=== PATIENT | female | born 1985 | race Two or more races ===

== ENCOUNTER 2017-02-12 12:03 | Emergency (ER) | payer MEDICAID ==
[~2017-02-12] VITALS: Ht 152.4 cm; Wt 69.0 kg
[2017-02-12 12:07] VITALS: BP 120/78
[2017-02-12 12:59] LABS: HEMATOCRIT 42.9 % (34.6-47.8); HEMOGLOBIN 14.5 g/dL (11.7-16.4); WHITE BLOOD COUNT 12.1 x10^3/uL (3.4-10)
[2017-02-12] MEDS ORDERED: CLINDAMYCIN 150 MG CAPSULE PO ONE (13:00)
[2017-02-12] MEDS ORDERED: LIDOCAINE 1%, 20ML INFIL ONE (13:00)
[2017-02-12] MEDS ORDERED: CLINDAMYCIN 150 MG CAPSULE ONE (13:01)
[2017-02-12] MEDS ORDERED: LIDOCAINE 1%, 20ML ONE (13:01)
[2017-02-12 13:02] LABS: BLOOD UREA NITROGEN 8 mg/dL (7-18)
== END 2017-02-12 13:53 | disposition home or self-care (01) ==
LOC: ED 13:47
DX: L02.511 Cutaneous abscess of right hand (principal)
CPT/HCPCS: 26010; 36415; 73140; 80048; 85025; 99285; J3490